=== PATIENT | female | born 1985 | race Two or more races ===

== ENCOUNTER 2020-09-05 00:48 | Emergency (ER) | payer BC ==
[~2020-09-05] VITALS: Ht 170.2 cm; Wt 80.0 kg
[2020-09-05 01:39] LABS: BASOPHILS % 0.4 % (0.0-2.0); EOSINOPHILS % 1.9 % (0.0-5.0); HEMATOCRIT. 39.1 % (36.0-48.0); LYMPHOCYTES % 31.7 % (20.0-50.0); MEAN CORPUSCULAR HEMOGLOBIN 30.8 pg (28.0-32.0); MEAN CORPUSCULAR VOLUME 92.9 fL (81.0-99.0); MONOCYTES % 8.1 % (2.0-8.0); NEUTROPHILS % 57.9 % (40.0-76.0); PLATELET 97 x1000/uL (130-400); RED BLOOD CELL COUNT 4.21 mill/uL (4.2-5.4); RED CELL DISTRIBUTION WIDTH 12.7 % (11.6-14.6)
[2020-09-05 01:46] LABS: CHLORIDE 106 mEq/L (98-107)
[2020-09-05 01:50] LABS: ETHANOL BLOOD 25 mg/dL
[2020-09-05 02:25] VITALS: BP 128/87
== END 2020-09-05 02:25 | disposition home or self-care (01) ==
LOC: EDSEX 00:48 → ER 00:48
DX: F12.10 Cannabis abuse, uncomplicated (principal); F10.129 Alcohol abuse with intoxication, unspecified; Y90.1 Blood alcohol level of 20-39 mg/100 ml; R00.2 Palpitations; D64.9 Anemia, unspecified; Z88.3 Allergy status to other anti-infective agents
CPT/HCPCS: 36415; 80053; 80320; 84443; 85025; 99283; G0480